=== PATIENT | male | born 2000 | race Caucasian/White ===

== ENCOUNTER → 2023-01-09 10:10 | Outpatient (BNVA) | payer BC, SELFPAY | PROVIDERS: PCP Family Medicine; Visit Provider Family Medicine | DX: R00.2 Palpitations (principal) | CPT/HCPCS: 80053; 84443; 85025 ==

== ENCOUNTER 2023-05-30 10:16 | Outpatient (RCR) | payer BC, SELFPAY | END 2023-06-07 23:59 | disposition home or self-care (01) | LOC: SPT 10:16 | PROVIDERS: PCP Family Medicine; Visit Provider Family Medicine | DX: H81.13 Benign paroxysmal vertigo, bilateral (principal) | CPT/HCPCS: 95992; 97161 ==

== ENCOUNTER 2023-06-08 06:00 | Outpatient (RCR) | payer BC, SELFPAY | END 2023-07-08 23:59 | disposition home or self-care (01) | LOC: SPT 06:00 | PROVIDERS: PCP Family Medicine; Visit Provider Family Medicine | DX: H81.13 Benign paroxysmal vertigo, bilateral (principal) | CPT/HCPCS: 95992 ==